=== PATIENT | male | born 1985 | race Caucasian/White ===

== ENCOUNTER 2016-07-20 17:49 | Emergency (ER) | payer OTHER ==
[2016-07-20] MEDS ORDERED: HYDROCODONE/ACETAMINOPHEN 5/325MG TABLET ONE (18:22)
--- NOTE | 2016-07-20 18:54 | RAD ---
Name: DEVI ELLIS Exam: Right knee Comparison: 09/22/2014 Clinical history: Trauma. Twisting injury. Right knee pain. Findings: 4 views right knee are submitted. Bone density is normal. There is mild narrowing of the lateral tibiofemoral joint space which has worsened from the prior. Suprapatellar joint effusion is similar to the prior. There is no fracture dislocation periosteal fracture foreign body. Impression: 1. No acute bony abnormality 2. Joint effusion similar to the prior 3. 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
== END 2016-07-20 19:34 | disposition home or self-care (01) ==
LOC: ED 17:49
DX: S83.91XA Sprain of unspecified site of right knee, initial encounter (principal); F17.220 Nicotine dependence, chewing tobacco, uncomplicated; X58.XXXA Exposure to other specified factors, initial encounter; Y93.01 Activity, walking, marching and hiking
CPT/HCPCS: 73564; 99284; 99283; A9270

== ENCOUNTER 2016-07-24 16:22 | Emergency (ER) | payer OTHER ==
--- NOTE | 2016-07-24 18:35 | RAD ---
ANKLE-RIGHT 3 VIEW COMPARISON: None HISTORY: Right ankle pain. FINDINGS Views: Right ankle AP, mortise, lateral. Bones: No fracture. Normal alignment. Joints: Normal joint spacing. Soft tissues: Diffuse edema of the lower leg and the ankle. IMPRESSION: 1. Diffuse edema of the lower leg and ankle. No fracture. Normal bone alignment.
== END 2016-07-24 18:59 | disposition home or self-care (01) ==
LOC: ED 16:22
DX: S93.401A Sprain of unspecified ligament of right ankle, initial encounter (principal); M25.461 Effusion, right knee; W01.0XXA Fall on same level from slipping, tripping and stumbling without subsequent striking against object, initial encounter; Y92.009 Unspecified place in unspecified non-institutional (private) residence as the place of occurrence of the external cause